=== PATIENT | male | born 1955 | race Caucasian/White ===

== ENCOUNTER → 2016-09-04 | Outpatient (CLI) | payer BC, OTHER ==
[~2016-09-04] MED LIST: ACID1TAB7 PO; ALBU8.5H3 INH; APIX5TAB PO; BENZ100C4 PO; BENZ200C40 PO; DIGO250T PO; FURO-93 PO; GUAI600T22 PO; HYDR-3138 PO; HYDR-3144 PO; HYDR-757 PO; HYDR1TAB14 PO; IRON1TAB60 PO; LEVO750T26 PO; METH750T2 PO; METO25TA35 PO; OMEP-110 PO; POTA20TA14 PO
== END | disposition home or self-care (01) ==
LOC: CFH 13:41
PROVIDERS: ATTEND Internal Medicine
DX: R05 Cough (principal)
CPT/HCPCS: 71020

== ENCOUNTER 2018-05-29 10:04 | Day surgery (SDC) | payer BC, OTHER ==
[~2018-05-29] VITALS: Ht 170.2 cm; Wt 113.6 kg
[~2018-05-29 10:04] MED LIST changes: -ALBU8.5H3 INH; +ALBU8.5H8 INH; +BENZ-17 PO; -BENZ100C4 PO; -BENZ200C40 PO; +BENZ200C48 PO; -GUAI600T22 PO; +GUAI600T31 PO; -HYDR-3138 PO; -HYDR-3144 PO; +HYDR-3237 PO; +HYDR-3245 PO
[2018-05-29 10:33] VITALS: BP 141/97
[2018-05-29] MEDS ORDERED: METO-93 PO (10:38)
[2018-05-29] MEDS ORDERED: Testosterone IM (10:38)
[2018-05-29] MEDS ORDERED: Iron PO (10:39)
[2018-05-29] MEDS ORDERED: PROPOFOL 10 MG/ML, 20ML ONE (12:00)
[2018-05-29 12:23] LABS: ANION GAP 8 mmol/L (5-15); CALCIUM 7.9 mg/dL (8.5-10.1); CHLORIDE 112 mmol/L (98-107); CREATININE 0.81 mg/dL (0.7-1.3)
== END 2018-05-29 13:27 | disposition home or self-care (01) ==
LOC: CACL 10:04
PROVIDERS: ATTEND Internal Medicine Cardiovascular Disease
DX: I48.0 Paroxysmal atrial fibrillation (principal); G89.29 Other chronic pain; K21.9 Gastro-esophageal reflux disease without esophagitis; I10 Essential (primary) hypertension; Z79.01 Long term (current) use of anticoagulants; Z86.010 Personal history of colon polyps; Z68.41 Body mass index [BMI] 40.0-44.9, adult; Z79.899 Other long term (current) drug therapy
CPT/HCPCS: 36415; 80048; 92960; J2704

== ENCOUNTER → 2018-05-30 | Outpatient (CLI) | payer BC, OTHER ==
[~2018-05-30] MED LIST changes: +Iron PO; +METO-93 PO; +Testosterone IM
== END | disposition home or self-care (01) ==
LOC: CVU 13:27
PROVIDERS: ATTEND Internal Medicine Cardiovascular Disease
DX: I08.1 Rheumatic disorders of both mitral and tricuspid valves (principal); I48.0 Paroxysmal atrial fibrillation
CPT/HCPCS: 93306

== ENCOUNTER → 2018-07-14 | Outpatient (CLI) | payer BC, OTHER | END | disposition home or self-care (01) | LOC: CFH 08:31 | PROVIDERS: ATTEND Internal Medicine Cardiovascular Disease | DX: I51.7 Cardiomegaly (principal); I48.0 Paroxysmal atrial fibrillation | CPT/HCPCS: 78452; 93017; A9502 ==